=== PATIENT | male | born 1980 | race Caucasian/White ===

== ENCOUNTER 2017-12-08 20:23 | Emergency (ER) | payer OTHER ==
[~2017-12-08] VITALS: Ht 167.6 cm; Wt 80.9 kg
[~2017-12-08 20:23] MED LIST: ALBUTEROL; PRIMATENE
[2017-12-08 20:28] VITALS: BP 150/97
== END 2017-12-09 00:14 | disposition left against medical advice (07) ==
LOC: ER 22:33
DX: Z53.21 Procedure and treatment not carried out due to patient leaving prior to being seen by health care provider (principal)